=== PATIENT | male | born 1965 | race Caucasian/White ===

== ENCOUNTER 2017-10-18 10:33 | Observation (INO) ==
[2017-10-18] MEDS ORDERED: Ondansetron 4 MG/2 ML VIAL IVP ONE (10:37)
[2017-10-18] MEDS ORDERED: Ketorolac 15 MG/ML VIAL IVP ONE ×2 (10:37→12:09)
[2017-10-18] MEDS ORDERED: 0.9 % Sodium Chloride 1,000 ML IVC ONE (10:42)
[2017-10-18] MEDS ORDERED: Hyoscyamine 0.5 MG/ML MLS IVP ONE (10:43)
--- NOTE | 2017-10-18 10:47 | Emergency Department Note ---
Disposition Clinical Impression: Ureterolithiasis, Hydroureteronephrosis, History of urethral stricture Disposition: Still a Patient Condition: Good Time of Disposition: 11:13 Abdominal Pain HPI - General Chief Complaint: ED Abdominal Pain Stated Complaint: Kidney Stones Time Seen by Provider: 10/18/17 10:37 Source: patient, family, EMS Mode of arrival: EMS Limitations: other (pain is limiting ability to give a good hx at this time) - History of Present Illness Pt Subjective Complaint: flank pain Onset (ago): day(s) Consistency: constant, Worsening Location: L flank Pain Severity: severe Pain Scale: 10 Quality: stabbing, sharp Radiation: none Migration to: no migration Improves with: nothing Worsens with: nothing Context: history of similar episodes (Patient states, "It might be another kidney stone") Associated symptoms: Reports: nausea, vomiting. Denies: diarrhea, fever, chills , constipation, dysuria, hematemesis, hematochezia, melena, hematuria, anorexia , syncope Treatments prior to arrival: other (MSO4 per EMS - 2mg, no relief.) - Related Data Home Medications Medication Instructions Recorded Confirmed Aspirin [Lo-Dose Aspirin EC] 81 mg PO DAILY 06/09/16 10/18/17 Testosterone [Testim] 5 gm TD DAILY 10/18/17 10/18/17 Allergies Allergy/AdvReac Type Severity Reaction Status Date / Time No Known Allergies Allergy Verified 06/12/16 01:37 All systems ED: reviewed and negative except as stated. Review of Systems: As Per HPI Constitutional: Denies: fever, chills, weakness Cardiovascular: Denies: chest pain, palpitations, dyspnea on exertion Respiratory: Denies: cough, dyspnea, wheezes Gastrointestinal: Reports: nausea, vomiting. Denies: abdominal pain, diarrhea, constipation Genitourinary: Denies: urgency, dysuria, frequency, hematuria, discharge, testicular pain Musculoskeletal: Denies: back pain, neck pain, joint swelling, arthralgia Integumentary: Denies: rash, abrasion, lesions Neurological: Denies: weakness, numbness, paresthesias Hematological/Lymphatic: Denies: easy bleeding, easy bruising Abdominal Pain PMH - Past Medical History Medical history: Reports: no medical history Reports: kidney stone Male Surgical History: Reports: no surgical history Psychiatric history: Reports: no psych history - Social History Smoking status: Former smoker Alcohol use: Reports: occasionally Drug use: Reports: none Physical Exam - General Limitations: no limitations General appearance: alert, in distress - Head Head exam: atraumatic, normocephalic, normal inspection - Eye Eye exam: Present: normal appearance, PERRL. Absent: scleral icterus, conjunctival injection, periorbital swelling - ENT ENT exam: mucous membranes moist - Neck Neck exam: Present: normal inspection, full ROM, trachea midline. Absent: tenderness, meningismus, lymphadenopathy - Chest Chest inspection: Present: normal inspection - Respiratory Respiratory exam: Present: normal lung sounds bilaterally. Absent: respiratory distress - Cardiovascular Cardiovascular exam: Present: regular rate, normal rhythm - Abdominal Exam Abdominal exam: Present: soft, Non-Tender. Absent: distention, guarding, rebound, rigidity, mass - Extremities Exam Extremities exam: Present: normal inspection, full ROM. Absent: pedal edema - Back Exam Back exam: Present: normal inspection, CVA tenderness (L), sciatic notch tenderness (L). Absent: vertebral tenderness, sciatic notch tenderness (R) - Neurological Exam Neurological exam: Present: alert, oriented X3, CN II-XII intact, normal gait, motor sensory deficit, reflexes normal - Psychiatric Psychiatric exam: Present: normal affect, normal mood, flat affect - Skin Skin exam: Present: warm, dry, intact, normal color Course Course Narrative: Otherwise healthy 52-year-old male patient presents by squad for eval of severe left flank pain x several days. He has hx of kidney stones and is established with [facility]. He had a KUB done yesterday outpatient- ordered by Dr. Nix. This shows a 'Probable 5-10mm stone in left mid ureter' and a 7mm stone in the lower pole of the kidney. EMS gave patient 2mg of Morphine. No relief. Additional meds and CT have been ordered. CT was recommended by the Radiologist yesterday who read the KUB. Case discussed with Dr. Rosas. He has had [id number] time with the patient, has reviewed the CT and lab findings and agrees with the assessment and plan. Patient will most likely require admission for a procedure to remove the obstructing stone. Creatinine is just barely above the normal limit. This is most likely secondary to patient's three days of nausea and decreased oral intake. Urinalysis is still pending. Patient states that he was able to urinate just before he came here today. - Reevaluation(s) Reevaluation #1: Pain much better, no nausea or vomiting since meds given. BP improved. Resting in reclined position. No longer diaphoretic. Time: 11:20 - Consultations Consultation #1: Case discussed with Dr. Felipe. He will admit the patient and plans to take the patient to the OR tomorrow. Time: 12:10 Vital Signs Temperature 97.7 F 10/18/17 10:37 Pulse Rate 85 10/18/17 10:37 Respiratory Rate 20 10/18/17 10:37 Blood Pressure 126/89 10/18/17 10:37 O2 Sat by Pulse Oximetry 96 10/18/17 10:37 Temperature 97.9 F 10/18/17 13:29 Pulse Rate 67 10/18/17 13:29 Respiratory Rate 15 10/18/17 13:29 Blood Pressure 117/72 10/18/17 13:29 O2 Sat by Pulse Oximetry 96 10/18/17 13:29 Oxygen Delivery Oxygen Delivery Room Air Abdominal Pain - Medical Records Medical records reviewed: Yes I reviewed the patient's medical records. - Lab Data Lab results reviewed: Yes I reviewed the patient's lab results. Lab results narrative: Laboratory Last Values WBC 9.2 K/mcL (4.3-11.1) 10/18/17 11:20 RBC 4.51 M/mcL (4.19-5.50) 10/18/17 11:20 Hgb 14.4 g/dL (12.9-16.9) 10/18/17 11:20 Hct 41.2 % (37.5-50.1) 10/18/17 11:20 MCV 91.4 fL (83.0-100.0) 10/18/17 11:20 MCH 31.9 pg (28.0-33.3) 10/18/17 11:20 MCHC 35.0 g/dL (31.6-35.5) 10/18/17 11:20 RDW 12.5 % (11.5-14.5) 10/18/17 11:20 Plt Count 126 K/mcL (140-400) L 10/18/17 11:20 MPV 10.3 fL (9.4-12.4) 10/18/17 11:20 Immature Gran % 0.8 % (0-4) 10/18/17 11:20 Seg Neutrophils % 84.5 % 10/18/17 11:20 Lymphocytes % 8.2 % 10/18/17 11:20 Monocytes % 5.6 % 10/18/17 11:20 Eosinophils % 0.5 % 10/18/17 11:20 Basophils % 0.4 % 10/18/17 11:20 Neutrophils # 7.7 K/mcL (1.6-8.9) 10/18/17 11:20 Lymphocytes # 0.8 K/mcL (0.6-4.6) 10/18/17 11:20 Monocytes # 0.5 K/mcL (0.0-1.3) 10/18/17 11:20 Eosinophils # 0.1 K/mcL (0.0-0.6) 10/18/17 11:20 Basophils # 0.0 K/mcL (0.0-0.2) 10/18/17 11:20 Sodium 139 mEq/L (136-145) 10/18/17 11:20 Potassium 4.1 mEq/L (3.5-5.1) 10/18/17 11:20 Chloride 104 mEq/L (98-107) 10/18/17 11:20 Carbon Dioxide 26 mEq/L (23-29) 10/18/17 11:20 BUN 17 mg/dL (6-20) 10/18/17 11:20 Creatinine 1.31 mg/dL (0.70-1.30) H 10/18/17 11:20 Est GFR ( Amer) > 60 (> 60) 10/18/17 11:20 Est GFR (Non-Af Amer) 57 (> 60) L 10/18/17 11:20 BUN/Creatinine Ratio 13 (6-26) 10/18/17 11:20 Glucose 151 mg/dL (70-105) H 10/18/17 11:20 Calculated Osmolality 292 (280-300) 10/18/17 11:20 Calcium 9.6 mg/dL (8.6-10.3) 10/18/17 11:20 Result diagrams: 10/18/17 11:20 10/18/17 11:20 Lab Results 10/18/17 10/18/17 Range/Units 11:20 11:20 WBC 9.2 (4.3-11.1) K/mcL RBC 4.51 (4.19-5.50) M/mcL Hgb 14.4 (12.9-16.9) g/dL Hct 41.2 (37.5-50.1) % MCV 91.4 (83.0-100.0) fL MCH 31.9 (28.0-33.3) pg MCHC 35.0 (31.6-35.5) g/dL RDW 12.5 (11.5-14.5) % Plt Count 126 L (140-400) K/mcL MPV 10.3 (9.4-12.4) fL Immature Gran % 0.8 (0-4) % Seg Neutrophils % 84.5 % Lymphocytes % 8.2 % Monocytes % 5.6 % Eosinophils % 0.5 % Basophils % 0.4 % Neutrophils # 7.7 (1.6-8.9) K/mcL Lymphocytes # 0.8 (0.6-4.6) K/mcL Monocytes # 0.5 (0.0-1.3) K/mcL Eosinophils # 0.1 (0.0-0.6) K/mcL Basophils # 0.0 (0.0-0.2) K/mcL Sodium 139 (136-145) mEq/L Potassium 4.1 (3.5-5.1) mEq/L Chloride 104 (98-107) mEq/L Carbon Dioxide 26 (23-29) mEq/L BUN 17 (6-20) mg/dL Creatinine 1.31 H (0.70-1.30) mg/dL Est GFR ( Amer) > 60 (> 60) Est GFR (Non-Af Amer) 57 L (> 60) BUN/Creatinine Ratio 13 (6-26) Glucose 151 H (70-105) mg/dL Calculated Osmolality 292 (280-300) Calcium 9.6 (8.6-10.3) mg/dL - Radiology Data Radiology results reviewed: Yes I reviewed the patient's radiology results. Vital Signs Temperature 97.7 F 10/18/17 10:37 Pulse Rate 85 10/18/17 10:37 Respiratory Rate 20 10/18/17 10:37 Blood Pressure 126/89 10/18/17 10:37 O2 Sat by Pulse Oximetry 96 10/18/17 10:37 Temperature 97.7 F 10/18/17 10:37 Pulse Rate 85 10/18/17 10:37 Respiratory Rate 20 10/18/17 10:37 Blood Pressure 126/89 10/18/17 10:37 O2 Sat by Pulse Oximetry 96 10/18/17 10:37 Oxygen Delivery Oxygen Delivery Room Air Abdomen/Pelvis CT 10/18/17 10:40 IMPRESSION: 1. Moderate left hydronephrosis and hydroureter secondary to a left mid ureteral stone measuring 10 x 7 x 6 mm. 2. Nonobstructing left nephrolithiasis. 3. Normal appendix. D/ / 10/18/2017 11:23:18 Digna Martinez MD / milvia Interpreting Provider: Digna Martinez MD Attestation Statement - Attestation Attestation: Patient was seen in cooperation with physician logistics assistant. I reviewed the history, physical, assessment, and plan, and I agree with the findings. I also had personal yfvy-[id number] time with this patient and evaluated this patient. 52-year-old male presents with several day history of left flank pain. He has a history of both urethral strictures as well as renal stones. This concerned because he thought the pain was a kidney stone. He has pain in the left flank radiating down into the left groin and also has nausea and vomiting. Review of systems as above remainder negative. Physical exam vital signs are stable. ENT is unremarkable. Heart regular rhythm and rate. Lungs clear. Abdomen soft nontender. Extremities unremarkable. Neurologically intact. Skin no rashes. Extremities unremarkable. ED course CT scan revealed obstructing renal stone the left side. Patient will need to be admitted for pain management as well as probable stent placement or removal. Patient was comfortable to plan. We will contact urology to arrange for admission. They agreed to accept the patient. I agree with the physician logistics assistant assessment and plan.
[2017-10-18 11:35] LABS: Basophils % 0.4 %; Eosinophils # 0.1 K/mcL (0.0-0.6); Eosinophils % 0.5 %; Hematocrit 41.2 % (37.5-50.1); Hemoglobin 14.4 g/dL (12.9-16.9); Immature Granulocytes % 0.8 % (0-4); Lymphocytes # 0.8 K/mcL (0.6-4.6); Lymphocytes % 8.2 %; Mean Corpuscular Hemoglobin 31.9 pg (28.0-33.3); Mean Corpuscular Volume 91.4 fL (83.0-100.0); Mean Platelet Volume 10.3 fL (9.4-12.4); Monocytes # 0.5 K/mcL (0.0-1.3); Monocytes % 5.6 %; Neutrophils # 7.7 K/mcL (1.6-8.9); Platelet Count 126 K/mcL (140-400); Red Blood Count 4.51 M/mcL (4.19-5.50); Red Cell Distribution Width 12.5 % (11.5-14.5); Segmented Neutrophils % 84.5 %
[2017-10-18 11:54] LABS: BUN/Creatinine Ratio 13 (6-26); Blood Urea Nitrogen 17 mg/dL (6-20); Calcium 9.6 mg/dL (8.6-10.3); Carbon Dioxide 26 mEq/L (23-29); Chloride 104 mEq/L (98-107); Glucose 151 mg/dL (70-105); Osmolality,Calculated 292 (280-300); Potassium 4.1 mEq/L (3.5-5.1); Sodium 139 mEq/L (136-145); eGFR For Non-African Americans 57 (> 60)
[2017-10-18] MEDS: Ondansetron 4 MG/2 ML VIAL IVP ONE ×2 (12:15→12:16)
[2017-10-18 12:43] LABS: Bilirubin,Urine Negative (Negative); Blood,Urine Small (Negative); Clarity,Urine Clear (Clear); Color,Urine Yellow (Yellow); Glucose,Urine (UA) Normal (Normal); Ketones,Urine Trace mg/dL (Negative); Leukocyte Esterase,Urine Trace (Negative); Nitrite,Urine Negative (Negative); Protein,Urine Negative (Neg-Trace); Specific Gravity,Urine 1.023 (1.010-1.025); Urobilinogen,Urine Normal (Normal)
[2017-10-18 12:46] LABS: Bacteria,Urine None Seen per hpf (None-Few); Hyaline Casts,Urine None Seen per lpf (None-Few); Squamous Epithelial Cell,Urine Few per lpf (None-Few)
[2017-10-18] MEDS ORDERED: Naloxone 0.4 MG/ML INJ IVP PRN (13:09)
[2017-10-18] MEDS ORDERED: *HR* OxyCODONE Immed Rel 5 MG TABLET PO PRN (13:09)
[2017-10-18] MEDS ORDERED: *HR* Promethazine 25 MG/ML VIAL IVP PRN (13:09)
--- NOTE | 2017-10-18 13:17 | Urology History & Physical ---
Date of Encounter: 10/18/17 Time of Encounter: 13:15 Assessment and Plan (1) History of urethral stricture Current Visit: Yes Status: Acute We will plan on having the urethrotome available in the operating room for possible intervention of urethral stricture tomorrow. Patient has been having a weak urinary stream which could be related to either the stricture or prostatic enlargement. (2) Hydroureteronephrosis Current Visit: Yes Status: Acute Related to obstructing ureteral stone. This will resolve after intervention tomorrow or if patient spontaneously passed a stone. (3) Ureterolithiasis Current Visit: Yes Status: Acute Patient brought in for pain control. Patient will still leave placed on IV fluids. If patient fails to pass his stone tonight will be taken to the operating room for left ureteroscopic stone extraction and likely stent placement. History of Present Illness Chief complaint: left flank pain HPI: Mr. Lind is a 52 year old male well-known to urology service for recurrent kidney stones. Patient had been having severe left-sided flank pain 10 out of 10 in nature with some radiation to his left groin for the past couple days. He had a KUB done earlier which showed a proximal 10 mm stone. This was confirmed with a CT scan that was performed in the emergency department. Patient denies any nausea or vomiting. No fevers. Patient does have a past history significant for urethral stricture disease. He had what sounds like a DVIU performed in the . Past Med Surg Social Fam HX - Past Medical History Medical history: no medical history Psychiatric history: no psych history - Social History Smoking Status: Former smoker Smokeless Tobacco Status: No Alcohol use: occasionally Drug use: none - Additional Family History Additional family history: pt denies any significant family medical history Medications and Allergies Aspirin [Lo-Dose Aspirin EC] 81 mg PO DAILY 06/09/16 [History] Testosterone [Testim] 5 gm TD DAILY 10/18/17 [History] 3 Allergy/AdvReac Type Severity Reaction Status Date / Time No Known Allergies Allergy Verified 06/12/16 01:37 Review of Systems - Constitutional no chills, no fever(s) - EENT Nose, mouth and throat: no dizziness, no sore throat - Cardiovascular no chest pain, no dyspnea - Respiratory no cough, no dyspnea - Gastrointestinal abdominal pain, no nausea, no vomiting - Genitourinary no hematuria - Musculoskeletal back pain, no muscle weakness, no numbness - Integumentary no erythema, no swelling - Neurological no confusion, no weakness - Psychiatric no anxiety - Hematologic/Lymphatic no lymphadenopathy - Allergic/Immunologic no throat swelling Exam Initial Vital Signs Temp Pulse Resp BP Pulse Ox 97.7 F 85 20 126/89 96 10/18/17 10:37 10/18/17 10:37 10/18/17 10:37 10/18/17 10:37 10/18/17 10:37 General/Neuological: alert and oriented x 3 Eyes: normal pupils, non-icteric Neck: no lymphadenopathy noted, supple to touch Cardiovascular: RRR, no murmurs Respiratory: normal respiratory effort, clear bilaterally ABD: soft, nontender, no masses palpated, good bowel sounds Back: no pain on percussion bilaterally : normal phallus, normal scrotum, testicles and epididymides normal, urethral meatus normal. Skin: no rashes noted Musculoskeletal: normal gait, FROMx4 - General physical appearance Present: well developed Urology Results - Labs 10/18/17 11:20 10/18/17 11:20 Abnormal lab results Plt Count 126 K/mcL (140-400) L 10/18/17 11:20 Creatinine 1.31 mg/dL (0.70-1.30) H 10/18/17 11:20 Est GFR (Non-Af Amer) 57 (> 60) L 10/18/17 11:20 Glucose 151 mg/dL (70-105) H 10/18/17 11:20 Urine Ketones Trace mg/dL (Negative) H 10/18/17 12:26 Urine Blood Small (Negative) H 10/18/17 12:26 Ur Leukocyte Esterase Trace (Negative) H 10/18/17 12:26 Urine Microscopic RBC 3-5 per hpf (0-3) H 10/18/17 12:26 Urine Microscopic WBC 3-5 per hpf (0-3) H 10/18/17 12:26 Ur Culture Indicated? YES (NO) A 10/18/17 12:26 All other labs normal. - Imaging CT scan - abdomen: image reviewed CT scan - pelvis: image reviewed (Showed 2 stones in the left side with one in the proximal ureter and 1 in the upper pole of the left kidney. Patient with some [id number] hydronephrosis on the left side)
[2017-10-18] MEDS: 0.9 % Sodium Chloride 1,000 ML IVC SCH ×2 (14:09→20:22)
[2017-10-18] MEDS: *HR* HYDROcodone/Acet 5/325 mg TABLET PO PRN (14:36)
--- NOTE | 2017-10-18 19:39 | Anesthesia Evaluation PreOp ---
Date of Encounter: 10/18/17 Time of Encounter: 19:10 - Past History Planned Operation: Left USE Cardiac History: Denies any Significant Hx Pulmonary History: Former smoker [employer] History: Denies Any Significant HX Other Medical History: Denies Any Significant HX Anesthesia History: No Prior Anesthetic Complications Alcohol Use: occasionally Drug use: none Medications and Allergies Aspirin [Lo-Dose Aspirin EC] 81 mg PO DAILY 06/09/16 [History] Testosterone [Testim] 5 gm TD DAILY 10/18/17 [History] 3 Allergy/AdvReac Type Severity Reaction Status Date / Time No Known Allergies Allergy Verified 06/12/16 01:37 - Meds/Allergy Pre-op Review Medications Reviewed: Yes Allergies Reviewed: Yes Beta Blockers on Current Med List: No Anesthesia Results - Labs 10/18/17 11:20 10/18/17 11:20 - Imaging EKG: report reviewed (Sinus Tach) Anesthesia Exam O2 Sat Height 1.78 m Height 1.78 m Weight 103 kg Weight 106.594 kg O2 Sat by Pulse Oximetry 94 O2 Sat by Pulse Oximetry 96 O2 Sat by Pulse Oximetry 98 O2 Sat by Pulse Oximetry 98 O2 Sat by Pulse Oximetry 96 Vital Signs Temp Pulse Resp BP Pulse Ox 97.7 F 85 20 126/89 96 10/18/17 10:37 10/18/17 10:37 10/18/17 10:37 10/18/17 10:37 10/18/17 10:37 Height: 5'10 Weight: 227 lbs NPO (# of Hours): MN Pain Scale: 0 - HEENT Pupil (Motor): Pupils equal, EOMI Mallampati: III Teeth: Edentulous Oral Opening: Less than or equal to 3 - [employer] LOC: Oriented [employer] Motor: Normal RUE, Normal LUE, Normal RLE, Normal LLE, Normal Face [employer] Sensory: Normal: RUE, LUE, RLE, LLE, Face - Cardiac Rhythm: Regular Murmur: None JVD: No Carotid Bruit: No - Pulmonary Breath Sounds: bilateral Clear Respiratory Effort: Symmetrical Anesthesia Assess/Plan ASA Score: 2 Modified Boutte Scale for Level of Consciousness: Cooperative, oriented, and tranquil Anesthetic Plan: General Monitoring Plan: Standard Monitors Recovery Plan: PACU (Discussed GA, agrees to proceed)
[2017-10-19 03:08] LABS: Basophils % 0.5 %; Eosinophils # 0.2 K/mcL (0.0-0.6); Eosinophils % 2.4 %; Hematocrit 38.1 % (37.5-50.1); Hemoglobin 12.9 g/dL (12.9-16.9); Immature Granulocytes % 0.5 % (0-4); Lymphocytes # 2.4 K/mcL (0.6-4.6); Lymphocytes % 30.3 %; Mean Corpuscular HGB Conc 33.9 g/dL (31.6-35.5); Mean Corpuscular Hemoglobin 31.6 pg (28.0-33.3); Mean Corpuscular Volume 93.4 fL (83.0-100.0); Mean Platelet Volume 10.5 fL (9.4-12.4); Monocytes # 0.7 K/mcL (0.0-1.3); Monocytes % 8.5 %; Neutrophils # 4.6 K/mcL (1.6-8.9); Platelet Count 122 K/mcL (140-400); Red Blood Count 4.08 M/mcL (4.19-5.50); Red Cell Distribution Width 12.7 % (11.5-14.5); Segmented Neutrophils % 57.8 %
[2017-10-19 03:19] LABS: BUN/Creatinine Ratio 14 (6-26); Blood Urea Nitrogen 16 mg/dL (6-20); Calcium 8.7 mg/dL (8.6-10.3); Carbon Dioxide 26 mEq/L (23-29); Chloride 108 mEq/L (98-107); Glucose 111 mg/dL (70-105); Osmolality,Calculated 292 (280-300); Sodium 140 mEq/L (136-145); eGFR For Non-African Americans > 60 (> 60)
[2017-10-19] MEDS: 0.9 % Sodium Chloride 1,000 ML IVC SCH ×2 (03:45→10:46)
[2017-10-19] MEDS: *HR* HYDROcodone/Acet 5/325 mg TABLET PO PRN (06:56)
--- NOTE | 2017-10-19 07:42 | Urology Progress Note ---
Date of Encounter: 10/19/17 Time of Encounter: 07:41 - Assessment and Plan (1) History of urethral stricture Current Visit: Yes Status: Acute (2) Hydroureteronephrosis Current Visit: Yes Status: Acute (3) Ureterolithiasis Current Visit: Yes Status: Acute Assessment and plan: Operative room today for left ureteroscopic stone extraction versus stent placement Progress Note Narrative: Patient seen this morning. Patient feeling okay at this time. Pain well- controlled. Patient did not pass his kidney stone Objective Initial Vital Signs Temp Pulse Resp BP Pulse Ox 97.7 F 85 20 126/89 96 10/18/17 10:37 10/18/17 10:37 10/18/17 10:37 10/18/17 10:37 10/18/17 10:37 - General physical appearance Present: well developed, well nourished - Abdomen Present: soft. Absent: tender - Labs 10/19/17 02:44 10/19/17 02:44 Diabetes panel 10/19/17 Range/Units 02:44 Sodium 140 (136-145) mEq/L Potassium 4.0 (3.5-5.1) mEq/L Chloride 108 H (98-107) mEq/L Carbon Dioxide 26 (23-29) mEq/L BUN 16 (6-20) mg/dL Creatinine 1.16 (0.70-1.30) mg/dL Glucose 111 H (70-105) mg/dL Calcium 8.7 (8.6-10.3) mg/dL Calcium panel 10/19/17 Range/Units 02:44 Calcium 8.7 (8.6-10.3) mg/dL Pituitary panel 10/19/17 Range/Units 02:44 Sodium 140 (136-145) mEq/L Potassium 4.0 (3.5-5.1) mEq/L Chloride 108 H (98-107) mEq/L Carbon Dioxide 26 (23-29) mEq/L BUN 16 (6-20) mg/dL Creatinine 1.16 (0.70-1.30) mg/dL Glucose 111 H (70-105) mg/dL Calcium 8.7 (8.6-10.3) mg/dL Adrenal panel 10/19/17 Range/Units 02:44 Sodium 140 (136-145) mEq/L Potassium 4.0 (3.5-5.1) mEq/L Chloride 108 H (98-107) mEq/L Carbon Dioxide 26 (23-29) mEq/L BUN 16 (6-20) mg/dL Creatinine 1.16 (0.70-1.30) mg/dL Glucose 111 H (70-105) mg/dL Calcium 8.7 (8.6-10.3) mg/dL - VTE Documentation of Mechanical Device: Intermittent pneumatic compression device Consult Discharge Plan - Plan Referrals: Jerad Felipe MD [Partnered Physician] - Carrie Anderson CNP [Primary Care Provider] -
[2017-10-19] MEDS ORDERED: TESTOSTERONE 5 GM TP SCH (09:00)
[2017-10-19] MEDS ORDERED: Aspirin Enteric Coated 81 MG Tablet PO SCH (09:00)
[2017-10-19] MEDS ORDERED: cefTRIAXone 1,000 MG in Water for inj. (sterile) 20 ML 10 ML IVP SCH (09:00)
[2017-10-19] MEDS ORDERED: *HR* OxyCODONE/APAP 5/325 TABLET PO PRN (16:13)
[2017-10-19] MEDS ORDERED: *HR* FentaNYL (PF) 100 MCG/2 ML VIAL IVP PRN (16:13)
[2017-10-19] MEDS ORDERED: Ondansetron 4 MG/2 ML VIAL IVP ONE (16:13)
[2017-10-19] MEDS ORDERED: *HR* Promethazine 25 MG/ML VIAL IVP PRN ×2 (16:13→17:54)
[2017-10-19] MEDS ORDERED: *HR* FentaNYL (PF) 100 MCG/2 ML VIAL ONE (16:32)
[2017-10-19] MEDS ORDERED: Ondansetron 4 MG/2 ML VIAL ONE (16:32)
[2017-10-19] MEDS ORDERED: Lidocaine -MPF 2% 2 ML VIAL ONE (16:32)
[2017-10-19] MEDS ORDERED: *HR* Propofol 200 MG/20 ML VIAL IVP ONE (16:32)
[2017-10-19] MEDS ORDERED: Dexamethasone 4 MG/ML VIAL ONE (16:32)
[2017-10-19] MEDS ORDERED: *HR* Midazolam HCl 2 MG/2 ML VIAL ONE (16:32)
--- NOTE | 2017-10-19 16:58 | Operative Note ---
Date of procedure: 10/19/17 Pre-op diagnosis: left ureteral stone Post-op diagnosis: same Procedure: Left ureteroscopic laser lithotripsy of stone, left ureteroscopic basket retrieval stone fragment, left 4.8 x 28 cm ureteral stent placement Anesthesia: GETA Surgeon: Jerad Felipe Was there an ophthalmic medical assistant present: No Estimated blood loss (cc): 5 Specimen: left ureteral stone Condition: stable Disposition: PACU Procedure in Detail: Patient was prepped and draped in normal sterile fashion. Timeout procedure performed. I then inserted the semirigid ureteroscope into the urethra. I did encounter a bulbar urethral stricture which was easily passed using the semirigid ureteroscope. I was able to cannulate the left ureteral orifice using this. In the mid ureter I encountered the 6-7 mm stone. I then using holmium laser to fragment the stone. All stone fragments were then removed using a basket device. I then placed a sensor wire back into the left kidney and placed a 4.8 x 28 cm ureteral stent. A string was left for easy removal in 2-3 days. Patient taken to PACU in stable condition
--- NOTE | 2017-10-19 17:01 | Discharge Summary ---
Orders not resulted at time of discharge: Pending orders 10/19/17 16:44 Surgical Pathology [PTH] Routine Date of Encounter: 10/19/17 Time of Encounter: 16:59 - Discharge Diagnosis (1) History of urethral stricture Priority: Secondary Status: Acute (2) Hydroureteronephrosis Priority: Secondary Status: Acute (3) Ureterolithiasis Priority: Primary Status: Acute - Hospital Course Hospital course: Mr. Lind is a 52 year old male was brought into the hospital for pain control from left ureteral stone. Patient taken operating room. He had some extraction. Patient tolerated well. He was then discharged home in stable condition. Patient will remove stent in 2-3 days. - Time Spent with Patient Total time spent providing and/or coordinating discharge services: Procedures and tests throughout hospitalization: Left ureteroscopic stone extraction on 10/19/2017 Labs on day of discharge: Labs from last 24 hours 10/19/17 10/19/17 10/19/17 11:04 02:44 02:44 WBC 7.9 RBC 4.08 L Hgb 12.9 D Hct 38.1 MCV 93.4 MCH 31.6 MCHC 33.9 RDW 12.7 Plt Count 122 L MPV 10.5 Immature Gran % 0.5 Seg Neutrophils % 57.8 Lymphocytes % 30.3 Monocytes % 8.5 Eosinophils % 2.4 Basophils % 0.5 Neutrophils # 4.6 Lymphocytes # 2.4 Monocytes # 0.7 Eosinophils # 0.2 Basophils # 0.0 Sodium 140 Potassium 4.0 Chloride 108 H Carbon Dioxide 26 BUN 16 Creatinine 1.16 Est GFR ( Amer) > 60 Est GFR (Non-Af Amer) > 60 BUN/Creatinine Ratio 14 Glucose 111 H POC Glucose 101 H Calculated Osmolality 292 Calcium 8.7 Preliminary micro results at discharge 10/18/17 12:26 Urine Culture - Preliminary Urine,Clean Catch No growth. - Discharge Medications Prescriptions: HYDROcodone/Acet 5/325 mg [[place] 5-325 mg] 2 tab PO Q6HR PRN 3 Days #12 tablet PRN Reason: Pain Home Medications: Aspirin [Lo-Dose Aspirin EC] 81 mg PO DAILY 06/09/16 [History] Testosterone [Testim] 5 gm TD DAILY 10/18/17 [History] HYDROcodone/Acet 5/325 mg [[place] 5-325 mg] 2 tab PO Q6HR PRN 3 Days #12 tablet 10/19/17 [Rx] Allergies/Adverse Reactions: 3 Allergy/AdvReac Type Severity Reaction Status Date / Time No Known Allergies Allergy Verified 06/12/16 01:37 Date of admission: 10/18/17 12:22 Primary care physician: Carrie Anderson CNP Discharging clinician: Jerad Felipe Anticipated date of discharge: 10/19/17 Exam Initial Vital Signs Temp Pulse Resp BP Pulse Ox 97.7 F 85 20 126/89 96 10/18/17 10:37 10/18/17 10:37 10/18/17 10:37 10/18/17 10:37 10/18/17 10:37 - General physical appearance Present: well developed, well nourished - Respiratory Present: normal respiratory effort, clear to auscultation - Patient Status Disposition: Home, Self-Care Condition: Good Functional capacity at discharge: independent ambulation Overall status at discharge: patient is progressing back to baseline - Discharge Instructions Follow Up With: Carrie Anderson CNP [Primary Care Provider] - Jerad Felipe MD [Partnered Physician] - (2-3 weeks) Forms: ED Satisfaction Letter, Work/School Release Additional Instructions: CLI.[id number] (Rev. 08/30) Page 1 of 2 POST-OPERATIVE HOME GOING INSTRUCTIONS: URETEROSCOPY/STENT/CYSTOSCOPY [facility] [address] [place] [id number] [address] Boyd Devries Your post-operative appointment has been scheduled for 1. When you leave Same Day Surgery you may be given: Prescriptions - Please finish all antibiotics. follow- up visit if instructed by your physician. 2. You should drink 6-8 glasses of water per day, as long as you are not on fluid restrictions by another physician. 3. It is very common to have blood and small clots in you urine following surgery. You may also experience urinary tract discomfort, irritation of the bladder and urethra (frequency, urgency, and pain/burning with urination), and occasional inability to control your urine. No sexual intercourse until evaluated by your physician 4. If you have a stent, you can expect pain: In your bladder radiating up to your kidney when, and after, you urinate When lifting something heavy When you turn or bend If you have a stent, you can expect frequency, urgency, and burning with urination and intermittent pink/red colored urine. You can work with a stent in place, but if you do a lot of heavy lifting or moving around you will see more blood in your urine. This is OKAY- just drink more fluids. If a string is taped to your abdomen, penis or thigh, it is connected to your stent. DO NOT pull on, or cut, your stent string, unless otherwise instructed by your physician. 5. Okay for patient to remove stent in 2-3 days - Diet and Activity Activity: increase activity as tolerated Diet: advance to your usual diet - VTE Documentation of Mechanical Device: Intermittent pneumatic compression device
[2017-10-19] MEDS ORDERED: *HR* OxyCODONE Immed Rel 5 MG TABLET PO PRN (17:54)
[2017-10-19] MEDS ORDERED: 0.9 % Sodium Chloride 1,000 ML IVC SCH (17:54)
[2017-10-19] MEDS ORDERED: Naloxone 0.4 MG/ML INJ IVP PRN (17:54)
[2017-10-19] MEDS ORDERED: *HR* HYDROcodone/Acet 5/325 mg TABLET PO PRN (17:54)
[2017-10-19 20:09] VITALS: BP 105/69
[2017-10-20] MEDS ORDERED: TESTOSTERONE 5 GM TP SCH (09:00)
[2017-10-20] MEDS ORDERED: cefTRIAXone 1,000 MG in Water for inj. (sterile) 20 ML 10 ML IVP SCH (09:00)
[2017-10-20] MEDS ORDERED: Aspirin Enteric Coated 81 MG Tablet PO SCH (09:00)
== END 2017-10-19 20:58 | disposition home or self-care (01) ==
LOC: 3ANU 10:33 → EMEROO 10:33 → 3ANU 13:35
PROVIDERS: ADMIT Urology; ATTEND Urology